=== PATIENT | male | born 1980 | race Two or more races ===

== ENCOUNTER 2024-12-14 16:05 | Emergency (ER) | payer OTHER ==
[~2024-12-14] VITALS: Ht 170.2 cm; Wt 91.0 kg
[2024-12-14 16:11] VITALS: O2SAT 96
[2024-12-14] MEDS ORDERED: IBUPROFEN 800MG TABLET PO ONE (17:45)
[2024-12-14 18:06] VITALS: BP 147/83; PULSE 93; RESP 18; TEMP 36.8; O2SAT 97
[2024-12-14] MEDS: IBUPROFEN 800MG TABLET PO SCH (18:06)
[2024-12-14] MEDS ORDERED: IBUP-2030 MT (18:25)
[2024-12-14] MEDS ORDERED: AMOX1TAB16 MT (18:25)
== END 2024-12-14 18:39 | disposition home or self-care (01) ==
LOC: ER 16:18
DX: K08.89 Other specified disorders of teeth and supporting structures (principal); F17.210 Nicotine dependence, cigarettes, uncomplicated; Z79.899 Other long term (current) drug therapy
CPT/HCPCS: 99283